=== PATIENT | male | born 1985 | race Caucasian/White ===

== ENCOUNTER 2018-06-04 10:15 | Emergency (ER) | payer SELFPAY ==
[~2018-06-04] VITALS: Ht 170.2 cm; Wt 100.0 kg
[~2018-06-04 10:15] MED LIST: LORTAB 5/500 501 TAB PO; NAPROXEN EC500 MG PO
[2018-06-04 10:22] VITALS: TEMP 98.1
[2018-06-04] MEDS ORDERED: CEPHALEXIN500 M1 PO (12:33)
[2018-06-04] MEDS ORDERED: PERCOCET 325 MG1 TA2 PO (12:33)
[2018-06-04 13:36] VITALS: BP 145/89; PULSE 99
== END 2018-06-04 13:39 | disposition home or self-care (01) ==
LOC: COL.ER 10:15
DX: S92.001B Unspecified fracture of right calcaneus, initial encounter for open fracture (principal); J45.909 Unspecified asthma, uncomplicated; F17.210 Nicotine dependence, cigarettes, uncomplicated; Z23 Encounter for immunization; W14.XXXA Fall from tree, initial encounter; Y92.89 Other specified places as the place of occurrence of the external cause
CPT/HCPCS: J0690; J3010; J7030; Q4045

== ENCOUNTER 2018-06-17 09:38 | Day surgery (SDC) | payer OTHER ==
[~2018-06-17] VITALS: Ht 170.2 cm; Wt 84.7 kg
[~2018-06-17 09:38] MED LIST changes: +CEPHALEXIN500 M1 PO; +PERCOCET 325 MG1 TA2 PO
[2018-06-17] MEDS ORDERED: NORCO 325 MG-7.1 TAB PO (10:19)
[2018-06-17 10:32] VITALS: BP 146/91; PULSE 113; TEMP 97.4
[2018-06-17 14:14] VITALS: TEMP 98
[2018-06-17 14:30] VITALS: BP 139/84; PULSE 85
[2018-06-17 14:45] VITALS: BP 141/82; PULSE 84
[2018-06-17 15:00] VITALS: BP 136/78; PULSE 87
== END 2018-06-17 15:07 | disposition home or self-care (01) ==
LOC: SDCO 09:38
DX: S92.061B Displaced intraarticular fracture of right calcaneus, initial encounter for open fracture (principal); W17.89XA Other fall from one level to another, initial encounter; W22.09XA Striking against other stationary object, initial encounter; F17.210 Nicotine dependence, cigarettes, uncomplicated
CPT/HCPCS: J0690; J1100; J1885; J2250; J2405; J2704; J2795; J3010; J7120

== ENCOUNTER 2018-08-24 15:45 | Outpatient (RCR) | payer SELFPAY ==
[~2018-08-24 15:45] MED LIST changes: +NORCO 325 MG-7.1 TAB PO
== END 2018-09-11 09:01 | disposition home or self-care (01) ==
LOC: WSPT 15:45
DX: S92.001D Unspecified fracture of right calcaneus, subsequent encounter for fracture with routine healing (principal); W12.XXXD Fall on and from scaffolding, subsequent encounter